=== PATIENT | male | born 1955 | race Caucasian/White ===

== ENCOUNTER 2021-03-06 12:32 | Emergency (ER) | payer OTHER ==
[2021-03-06] MEDS ORDERED: Acetaminophen-Codeine 300-30mg TAB PO STA (14:12)
--- NOTE | 2021-03-06 15:00 | XR ---
EXAMINATION TYPE: XR Hip LT and AP Pelvis DATE OF EXAM: 03/06/2021 COMPARISON: NONE HISTORY: Trauma and pain TECHNIQUE: A single AP view of the pelvis is obtained. Two views of the left hip are obtained. FINDINGS: There is irregularity the inferior pubic ramus on the left. The hip and sacroiliac joints appear symmetric and unremarkable. The overlying soft tissue appears unremarkable. Two views of left hip show no acute fracture or dislocation. No focal lytic or sclerotic lesion seen in the proximal left femur. The overlying soft tissue is unremarkable. Some sacralization of L5 is noted incidentally. Probable surgical clips present in the pelvis. IMPRESSION: There is suspected inferior pubic ramus fracture on the left
--- NOTE | 2021-03-06 15:01 | XR ---
Left shoulder HISTORY: Trauma and pain 3 views left shoulder There is a comminuted impacted proximal left humeral fracture with bayonet apposition, there is some subluxation inferiorly. Left lung apex as visualized is normal. IMPRESSION: Fracture as described.
--- NOTE | 2021-03-06 15:03 | XR ---
EXAMINATION TYPE: XR chest 1V DATE OF EXAM: 03/06/2021 COMPARISON: NONE HISTORY: Trauma and pain TECHNIQUE: Single frontal view of the chest is obtained. FINDINGS: There is no focal air space opacity, pleural effusion, or pneumothorax seen. The cardiac silhouette size is within normal limits. The osseous structures are remarkable of subluxation in th e left shoulder. Patient is rotated. IMPRESSION: No acute cardiopulmonary disease.
--- NOTE | 2021-03-06 15:14 | ED ---
Fall HPI - General Chief Complaint: Fall Stated Complaint: Fall Time Seen by Provider: 03/06/21 14:01 Source: patient Mode of arrival: wheelchair - History of Present Illness Initial Comments: 65-year-old male presents to emergency with a chief complaint of fall. States this occurred about one hour prior to arrival while he was outside painting on a ladder. States he was approximately 8 feet high at the level of the abdomen. He lost balance and fell down on the ground (soil). States the point of contact was his left shoulder which now he has extensive pain with limited range of motion with abduction. However, he denies any paresthesias through the arm. He denies any head injuries or loss of consciousness. Patient also reports pain in his left hip that seems to be exacerbated with ambulation and weightbearing but alleviated at rest. He denies taking medication to alleviate the symptoms. He denies any penetrating trauma from the ladder into his body. - Related Data Home Medications Medication Instructions Recorded Confirmed Aspirin EC [Ecotrin Low Dose] 81 mg PO DAILY 03/06/21 03/06/21 Multivitamins, Thera [Multivitamin 1 tab PO DAILY 03/06/21 03/06/21 (formulary)] Allergies Allergy/AdvReac Type Severity Reaction Status Date / Time No Known Allergies Allergy Verified 03/06/21 16:43 Review of Systems ROS Statement: Those systems with pertinent positive or pertinent negative responses have been documented in the HPI. ROS Other: All systems not noted in ROS Statement are negative. Past Medical History Past Medical History: No Reported History History of Any Multi-Drug Resistant Organisms: None Reported Past Surgical History: No Surgical Hx Reported Past Psychological History: No Psychological Hx Reported Smoking Status: Never smoker Past Alcohol Use History: Occasional Past Drug Use History: None Reported General Exam Limitations: no limitations General appearance: alert, in no apparent distress Head exam: Present: atraumatic, normocephalic, normal inspection. Absent: other (Negative Gagnon sign, raccoon eyes, or hemotympanum) Eye exam: Present: normal appearance, PERRL, EOMI Pupils: Present: normal accommodation ENT exam: Present: normal exam, normal oropharynx, mucous membranes moist, TM's normal bilaterally, normal external ear exam Neck exam: Present: normal inspection, full ROM. Absent: tenderness, l ymphadenopathy Respiratory exam: Present: normal lung sounds bilaterally. Absent: respiratory distress, wheezes, rales, rhonchi, stridor, chest wall tenderness, accessory mus donato use Cardiovascular Exam: Present: regular rate, normal rhythm, normal heart sounds. Absent: systolic murmur, diastolic murmur GI/Abdominal exam: Present: soft. Absent: distended, tenderness, guarding, rebound, rigid Extremities exam: Present: normal inspection, tenderness (Left deltoid tenderness. Lateral and anterior left hip tenderness.), normal capillary refill, other (Sensation intact in bilateral upper and lower extremities. Palpable DP and PT bilaterally. Palpable ulnar and radial possible laterally.). Absent: full ROM (Limited range of motion of the left shoulder due to pain), pedal edema, joint swelling, calf tenderness Back exam: Present: normal inspection, full ROM. Absent: tenderness, CVA tenderness (R), CVA tenderness (L), muscle spasm, paraspinal tenderness, vertebr al tenderness Neurological exam: Present: alert, oriented X3 Psychiatric exam: Present: normal affect, normal mood Skin exam: Present: warm, dry, intact, normal color Course Vital Signs 03/06/21 12:47 Temperature 98.3 F Pulse Rate 68 Respiratory 18 Rate Blood Pressure 118/59 O2 Sat by Pulse 98 Oximetry Medical Decision Making - Medical Decision Making 65-year-old male presents to emergency with a chief complaint of fall. On physical examination, limited range of motion in the left shoulder with tend erness over the lateral anterior aspect of the deltoid. He is otherwise neurovascularly intact in the left upper extremity. He also appears to have tenderness over the anterior lateral aspect of the left hip with limited range of motion due to pain. He does have palpable peripheral pulses. No tenderness to the back or the abdomen. CT of the brain and C-spine shows no acute findings. X-ray was obtained of the left shoulder which reveals a comminuted oximetry female fracture. CT was also obtained that confirmed this and showed multiple fragments of the left shoulder. X-ray pelvis and left hip reveals an inferior rami fracture. Patient was initially asked for analgesia, he declined. I asked him multiple times for analgesia until he agreed after 2 hours. I offered him IM narcotics, he declined. He only requested Tylenol 3 which was given to him. He was also given morphine later per request. Laboratory work reveals no acute findings. A sling was applied to his left arm. I spoke to Dr. Pike who recommended transfer to [facility] for further medical management and trauma surgery evaluation. I discussed this case with the patient's who are agreeable to transfer and they would prefer going with a private vehicle. I did offer an ambulance, they declined. I discussed the case with from [facility] who accepted transfer. I also spoke with from the ED at [facility]. This will be an ED to ED transfer. Patient is otherwise hemodynamically stable. Case discussed with attending, Dr. Larson. - Lab Data Result diagrams: 03/06/21 15:08 03/06/21 15:08 Lab Results 03/06/21 03/06/21 03/06/21 Range/Units 15:08 15:08 15:08 WBC 16.6 H (3.8-10.6) k/uL RBC 4.43 (4.30-5.90) m/uL Hgb 14.5 (13.0-17.5) gm/dL Hct 43.2 (39.0-53.0) % MCV 97.5 (80.0-100.0) fL MCH 32.7 (25.0-35.0) pg MCHC 33.5 (31.0-37.0) g/dL RDW 13.1 (11.5-15.5) % Plt Count 205 (150-450) k/uL MPV 9.5 Neutrophils % 89 % Lymphocytes % 6 % Monocytes % 3 % Eosinophils % 0 % Basophils % 0 % Neutrophils # 14.9 H (1.3-7.7) k/uL Lymphocytes # 1.0 (1.0-4.8) k/uL Monocytes # 0.5 (0-1.0) k/uL Eosinophils # 0.1 (0-0.7) k/uL Basophils # 0.0 (0-0.2) k/uL PT 10.8 (9.0-12.0) sec INR 1.0 (<1.2) APTT 22.6 (22.0-30.0) sec Sodium 133 L (137-145) mmol/L Potassium 4.1 (3.5-5.1) mmol/L Chloride 104 (98-107) mmol/L Carbon Dioxide 22 (22-30) mmol/L Anion Gap 7 mmol/L BUN 25 H (9-20) mg/dL Creatinine 0.59 L (0.66-1.25) mg/dL Est GFR (CKD-EPI)AfAm >90 (>60 ml/min/1.73 sqM) Est GFR (CKD-EPI)NonAf >90 (>60 ml/min/1.73 sqM) Glucose 140 H (74-99) mg/dL Calcium 8.9 (8.4-10.2) mg/dL Total Bilirubin 0.6 (0.2-1.3) mg/dL AST 43 (17-59) U/L ALT 39 (4-49) U/L Alkaline Phosphatase 60 (38-126) U/L Troponin I (0.000-0.034) ng/mL Total Protein 6.5 (6.3-8.2) g/dL Albumin 4.2 (3.5-5.0) g/dL 03/06/21 Range/Units 15:08 WBC (3.8-10.6) k/uL RBC (4.30-5.90) m/uL Hgb (13.0-17.5) gm/dL Hct (39.0-53.0) % MCV (80.0-100.0) fL MCH (25.0-35.0) pg MCHC (31.0-37.0) g/dL RDW (11.5-15.5) % Plt Count (150-450) k/uL MPV Neutrophils % % Lymphocytes % % Monocytes % % Eosinophils % % Basophils % % Neutrophils # (1.3-7.7) k/uL Lymphocytes # (1.0-4.8) k/uL Monocytes # (0-1.0) k/uL Eosinophils # (0-0.7) k/uL Basophils # (0-0.2) k/uL PT (9.0-12.0) sec INR (<1.2) APTT (22.0-30.0) sec Sodium (137-145) mmol/L Potassium (3.5-5.1) mmol/L Chloride (98-107) mmol/L Carbon Dioxide (22-30) mmol/L Anion Gap mmol/L BUN (9-20) mg/dL Creatinine (0.66-1.25) mg/dL Est GFR (CKD-EPI)AfAm (>60 ml/min/1.73 sqM) Est GFR (CKD-EPI)NonAf (>60 ml/min/1.73 sqM) Glucose (74-99) mg/dL Calcium (8.4-10.2) mg/dL Total Bilirubin (0.2-1.3) mg/dL AST (17-59) U/L ALT (4-49) U/L Alkaline Phosphatase (38-126) U/L Troponin I <0.012 (0.000-0.034) ng/mL Total Protein (6.3-8.2) g/dL Albumin (3.5-5.0) g/dL Disposition Clinical Impression: Fall, Fracture of proximal end of left humerus, Inferior pubic ramus fracture Disposition: TRANSFER TO PSYCH HOSP/UNIT Condition: Good Additional Instructions: Drive directly to [facility]. You are expected in the emergency department there. Is patient prescribed a controlled substance at d/c from ED?: No Referrals: Nonstaff,Physician [Primary Care Provider] - 1-2 days Time of Disposition: 17:36
[2021-03-06 15:24] LABS: Basophils % (A) 0 %; Eosinophils # (A) 0.1 k/uL (0-0.7); Eosinophils % (A) 0 %; HCT 43.2 % (39.0-53.0); HGB 14.5 gm/dL (13.0-17.5); Lymphocytes % (A) 6 %; MCH 32.7 pg (25.0-35.0); MCHC 33.5 g/dL (31.0-37.0); MCV 97.5 fL (80.0-100.0); Mean Platelet Volume 9.5; Monocytes # (A) 0.5 k/uL (0-1.0); Monocytes % (A) 3 %; Neutrophils # (A) 14.9 k/uL (1.3-7.7); Neutrophils % (A) 89 %; Platelet Count 205 k/uL (150-450); RBC 4.43 m/uL (4.30-5.90); RDW 13.1 % (11.5-15.5); WBC 16.6 k/uL (3.8-10.6)
[2021-03-06 15:33] LABS: ALT 39 U/L (4-49); AST 43 U/L (17-59); African American GFR (CKD) >90 (>60 ml/min/1.73 sqM); Albumin 4.2 g/dL (3.5-5.0); Alkaline Phosphatase 60 U/L (38-126); Anion Gap 7 mmol/L; Blood Urea Nitrogen 25 mg/dL (9-20); Calcium 8.9 mg/dL (8.4-10.2); Carbon Dioxide 22 mmol/L (22-30); Chloride 104 mmol/L (98-107); Glucose 140 mg/dL (74-99); Non-African American GFR(CKD) >90 (>60 ml/min/1.73 sqM); Potassium 4.1 mmol/L (3.5-5.1); Sodium 133 mmol/L (137-145); Total Bilirubin 0.6 mg/dL (0.2-1.3); Total Protein 6.5 g/dL (6.3-8.2)
--- NOTE | 2021-03-06 15:36 | CT ---
EXAMINATION TYPE: CT brain delbert meeks DATE OF EXAM: 03/06/2021 COMPARISON: None HISTORY: 65-year-old male with pain after fall CT DLP: 1363.5 mGycm Automated exposure control for dose reduction was used. Technique: Examination of the head was done in axial plane without intravenous contrast. Coronal and sagittal reconstructions performed. CT of the cervical spine was obtained in axial plane without intravenous injection of contrast mater ial. Coronal and sagittal reformatted images were obtained from the axial views for evaluation of f ractures, spinal alignment and canal. FINDINGS: Head: There is no evidence of acute intracranial hemorrhage, acute ischemic changes, mass, mass-effect, or extra-axial fluid collection. There is no effacement of cerebral sulci or basal subarachnoid cister ns. There is no hydrocephalus. There is no midline shift. Davey-white matter distinction is preserv ed. Incidental partially empty sella. Trace mucosal thickening ethmoid air cells. Small amount of fluid trapped in the inferior right masto id air cells. Orbits and globes are intact. Cervical spine: No craniocervical junction abnormality, predental space widening, or prevertebral soft tissue swellin g. Straightening of the normal cervical lordosis with preserved alignment. Moderate disc session C5-C7 levels with disc space narrowing and endplate sclerosis and spondylosis. Small foci of heterotopic ossification along the posterior midline at the mid to lower cervical spine level suggesting sequela of prior injury. No acute fracture of the cervical spine. Multilevel facet and uncovertebral joint arthropathy is present. Sagittal and coronal reformatted images confirm above findings. COMBINED IMPRESSION: 1. No acute intracranial abnormality seen. 2. No acute fracture or malalignment of the cervical spine. Moderate spondylotic changes C5-C7 levels .
[2021-03-06 15:40] LABS: Partial Thromboplastin Time 22.6 sec (22.0-30.0); Prothrombin Time 10.8 sec (9.0-12.0)
[2021-03-06] MEDS ORDERED: ONDANSETRON 4 MG/2 ML VIAL IVP STA (15:41)
[2021-03-06] MEDS ORDERED: MORPHINE SULFATE 4 MG/ML SYRINGE IVP STA (15:41)
--- NOTE | 2021-03-06 16:08 | CT ---
EXAMINATION TYPE: CT shoulder LT wo con DATE OF EXAM: 03/06/2021 COMPARISON: Radiograph same day HISTORY: 65-year-old male shoulder pain post fall TECHNIQUE: Contiguous axial scanning of the left shoulder without IV contrast. Coronal and sagittal r econstructions performed. 3-D reconstructions generated on a dedicated independent workstation. CT DLP: 463.5 mGycm Automated exposure control for dose reduction was used. FINDINGS: Laterally displaced, angulated, impacted fracture surgical neck. Lateral displacement and proximal mi gration measures up to at least 2.3 cm. Smaller comminuted fracture fragments are present anteriorly along the bicipital groove. A 2.4 x 2.2 cm fragment of bone (sagittal image 111 and coronal image 70) seems to comprise the posterior enthesis of the greater tuberosity There is a shoulder joint effusion. Moderate degenerative change AC joint. IMPRESSION: 1. AT LEAST A 2 PART FRACTURE OF THE PROXIMAL HUMERUS WITH A LATERALLY DISPLACED AND IMPACTED SURGICA L NECK COMPONENT. THIS FRACTURE HAS OBLIQUE EXTENSION POSTERIORLY INTO THE HUMERAL HEAD. NO HYACINTH ART ICULAR SURFACE DISRUPTION. 2. THERE IS COMMINUTION ANTERIORLY ALONG THE LOWER BICIPITAL GROOVE. 3. AN ADDITIONAL 2.4 X 2.2 CM FRACTURE FRAGMENT COMPRISING THE POSTERIOR ENTHESIS OF THE GREATER TUBE ROSITY HAS NOT SIGNIFICANTLY DISPLACED. 4. REFER TO THE ROTATIONAL 3-D RECONSTRUCTIONS FOR A GOOD OVERVIEW.
[2021-03-06 17:41] VITALS: BP 104/81; PULSE 62; RESP 20; TEMP 98.1
== END 2021-03-06 18:09 ==
LOC: EC 12:32
DX: S42.202A Unspecified fracture of upper end of left humerus, initial encounter for closed fracture (principal); S32.502A Unspecified fracture of left pubis, initial encounter for closed fracture; Z79.82 Long term (current) use of aspirin; W11.XXXA Fall on and from ladder, initial encounter
CPT/HCPCS: 36415; 80053; 84484; 85025; 85610; 85730; 73030; 73502; 71045; 72125; 70450; 73200; 96374; 96375; 99284; J2270; J2405

== ENCOUNTER 2024-01-31 09:16 | Emergency (ER) | payer OTHER ==
[2024-01-31 09:22] VITALS: TEMP 97.8
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
[2024-01-31] MEDS: KETOROLAC 15 MG/ML 1 ML VIAL IVP STA (10:38)
[2024-01-31 10:54] LABS: Basophils % (A) 0 %; Eosinophils % (A) 0 %; HCT 48.7 % (39.0-53.0); HGB 16.1 gm/dL (13.0-17.5); Lymphocytes # (A) 1.5 k/uL (1.0-4.8); Lymphocytes % (A) 9 %; MCH 31.4 pg (25.0-35.0); MCHC 33.1 g/dL (31.0-37.0); Mean Platelet Volume 8.5; Monocytes # (A) 0.7 k/uL (0-1.0); Monocytes % (A) 5 %; Neutrophils # (A) 13.6 k/uL (1.3-7.7); Neutrophils % (A) 85 %; Platelet Count 246 k/uL (150-450); RBC 5.13 m/uL (4.30-5.90); RDW 12.7 % (11.5-15.5)
[2024-01-31 11:07] LABS: ALT 43 U/L (4-49); AST 50 U/L (17-59); African American GFR (CKD) >90 (>60 ml/min/1.73 sqM); Albumin 4.7 g/dL (3.5-5.0); Alcohol <10 mg/dL; Alkaline Phosphatase 62 U/L (38-126); Anion Gap 5 mmol/L; Blood Urea Nitrogen 14 mg/dL (9-20); Calcium 9.6 mg/dL (8.4-10.2); Carbon Dioxide 29 mmol/L (22-30); Chloride 105 mmol/L (98-107); Glucose 115 mg/dL (74-99); Non-African American GFR(CKD) >90 (>60 ml/min/1.73 sqM); Potassium 4.3 mmol/L (3.5-5.1); Sodium 139 mmol/L (137-145); Total Bilirubin 0.8 mg/dL (0.2-1.3); Total Protein 7.4 g/dL (6.3-8.2)
--- NOTE | 2024-01-31 11:10 | XR ---
EXAMINATION TYPE: XR pelvis AP view DATE OF EXAM: 01/31/2024 CLINICAL HISTORY: pain TECHNIQUE: Single view the pelvis is submitted. FINDINGS: No evidence for fracture, dislocation or bony lesion. Joint spaces are well-preserved. S I joints appear symmetric. IMPRESSION: 1. No acute fracture or dislocation seen. ICD 10 NO FRACTURE, INITIAL EVALUATION
--- NOTE | 2024-01-31 11:10 | XR ---
EXAMINATION TYPE: XR chest 1V portable DATE OF EXAM: 01/31/2024 COMPARISON: 03/06/2021 HISTORY: Shortness of breath TECHNIQUE: Frontal and lateral views of the chest are obtained. FINDINGS: Scattered senescent parenchymal changes noted. Hyperinflation compatible with COPD. No evidence for infiltrate. No evidence for atelectasis. Heart size is stable. Mediastinal structures are stable and grossly unremarkable. No evidence for hilar prominence. Degenerative changes dorsal spine. IMPRESSION: 1. No evidence for acute pulmonary disease.
[2024-01-31 11:49] LABS: Prothrombin Time 10.8 sec (10.0-12.5)
[2024-01-31 11:50] LABS: Partial Thromboplastin Time 22.5 sec (22.0-30.0)
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
[2024-01-31] MEDS: MORPHINE SULFATE 4 MG/ML SYRINGE IVP STA (14:13)
[2024-01-31 14:24] VITALS: BP 117/68; PULSE 65; RESP 17
== END 2024-01-31 14:35 | disposition other institution (70) ==
LOC: EC 09:16 → SUPCPDRO 09:16 → EC 14:35
DX: S32.001A Stable burst fracture of unspecified lumbar vertebra, initial encounter for closed fracture (principal); V89.2XXA Person injured in unspecified motor-vehicle accident, traffic, initial encounter; Y92.411 Interstate highway as the place of occurrence of the external cause
CPT/HCPCS: 36415; 93005; 86900; 86901; 80053; 84484; 85025; 85610; 85730; 86850; 80320; 72170; 71045; 72125; 70450; 71260; 74177; 99291; 96374; 96375; J2270; J1885; Q9967